=== PATIENT | female | born 1950 | race Caucasian/White ===

== ENCOUNTER 2024-04-16 18:23 | Emergency (ER) | payer MEDICARE, SELFPAY ==
--- NOTE | ~2024-04-16 | CT_ITS ---
EXAMINATION: CT abdomen pelvis w con DATE: 04/16/2024 21:09 INDICATION: Abdominal pain, vomiting, dark emesis, dark tarry stools. TECHNIQUE: Computed tomography (CT) of the abdomen and pelvis was performed with 100 CC Omnipaque 350 intravenous contrast. Automated exposure control and iterative reconstruction technique were employe d. Exam dose: 586.24 mGy-cm total exam DLP. COMPARISON: 04/16/2024 abdomen for gastric tube placement FINDINGS: Included lower lung rizzo are clear of infiltrate or consolidation. Cardiomegaly, coronary atherosclerotic calcification. No pericardial or pleural effusion. NG tube in the gastric antrum. Numerous small stones are layering in the dependent aspect of the gallbladder. No gallbladder wall th ickening or pericholecystic fluid collection. Very small probable right hepatic cysts. No bile duct or pancreatic duct dilatation. No pancreatic mass lesion or calcification. Normal splenic size. Normal morphology of the adrenal glands. Mild to moderate bilateral renal scarring likely due to chronic pyelonephritis. Upper pole right renal 3 cm cyst. Very small mid right renal cyst. No other renal space-occupying mas s lesion is evident. No urinary tract calculus or hydroureteronephrosis. There is moderately prominent diffuse thickening of the urinary bladder wall; cystitis is not exclude d. The uterus and adnexal areas are unremarkable. There is extensive atherosclerotic calcified plaque of the abdominal aorta and common iliac arteries and atherosclerotic calcification of the common femoral and superficial femoral arteries. No intraperitoneal or retroperitoneal or pelvic mass lesion or adenopathy or ascites is detected. Mild diverticulosis of the left and right colon; no CT evidence of diverticulitis. No bowel obstruction or intraperitoneal free air. No evidence of appendicitis. Diffuse idiopathic skeletal hyperostosis of the thoracic spine. Severe degenerative disc disease at L5-S1. No suspicious osteolytic or osteoblastic lesions are noted. IMPRESSION: NG tube in gastric antrum Cholelithiasis Very small hepatic cysts, 3 cm and very small right renal cysts The bladder wall thickening; recommend clinical correlation to exclude cystitis Diverticulosis of left and right colon; no CT evidence of diverticulitis Reviewed, dictated and finalized at [facility]. Reviewed, dictated and finalized at [facility].
--- NOTE | ~2024-04-16 | XR_ITS ---
XR abdomen gastric tube insert DATE: 04/16/2024 20:20 INDICATION: NG tube placement TECHNIQUE: Portable AP view on 04/16/2024 at 2018 hours COMPARISON: None available FINDINGS: NG tube tip is in the lower body of the stomach approximately the proximal side port approx imately 13 cm distal to the diaphragmatic hiatus. Nonspecific bowel gas pattern. No intraperitoneal free air is evident. Included lung rizzo appear clear. No pleural effusion is noted. Aortic arch calcification. IMPRESSION: NG tube in satisfactory position in the body of stomach Reviewed, dictated and finalized at [facility] Reviewed, dictated and finalized at [facility].
[2024-04-16 18:25] VITALS: BP 165/107; PULSE 115; RESP 24; TEMP 36.6; O2SAT 97
[2024-04-16 18:46] VITALS: BP 165/99; PULSE 115; RESP 15; O2SAT 98
[2024-04-16] MEDS: PANTOPRAZOLE SODIUM IV 40 MG VIAL IV PUSH (20:00)
[2024-04-16] MEDS: SODIUM CHLORIDE 0.9% IV 1,000 ML 999 ML IV CONT (20:00)
[2024-04-16 20:07] LABS: Basophils Absolute Auto 0.1 K/mm3 (0.0-0.1); Basophils Percent Auto 0.8 % (0.2-1.2); Eosinophils Absolute Auto 0.1 K/mm3 (0-0.3); Eosinophils Percent Auto 0.3 % (0-4.4); Hematocrit 36.9 % (37.0-47.0); Hemoglobin 12.4 g/dL (12.0-15.0); Immature Granulocyte Absolute 0.08 K/mm3 (0.00-0.031); Immature Granulocyte Percent A 0.5 % (0-0.5); Lymphocytes Absolute Auto 2.24 K/mm3 (0.9-3.2); Lymphocytes Percent Auto 14.1 % (18.3-44.2); Mean Corpuscular HGB Conc 33.6 g/dl (32-36); Mean Corpuscular Hemoglobin 29.7 pg (26-34); Mean Corpuscular Volume 88.5 fl (80-100); Mean Platelet Volume 11.2 fl (7.4-10.4); Monocytes Absolute Auto 0.8 K/mm3 (0.1-0.6); Monocytes Percent Auto 5.2 % (2.6-8.5); Neutrophils Absolute Auto 12.6 K/mm3 (1.3-6.7); Neutrophils Percent Auto 79.1 % (45.5-73.1); Platelet Count Result 415 k/mm3 (150-375); Red Blood Count 4.17 M/mm3 (4.2-5.4); Red Cell Distribution Width 13.2 % (11.5-14.5); White Blood Count 15.9 K/mm3 (4.5-10.0)
[2024-04-16 20:16] VITALS: BP 150/77; PULSE 99; RESP 24; O2SAT 98
[2024-04-16 20:19] LABS: Lactic Acid Reflex 1.1 mmol/L (0.7-2.0)
--- NOTE | 2024-04-16 20:19 | PC.NURSE ---
EDP Dr. Sousa verbalized correct placement of NG tube at bedside.
[2024-04-16 20:20] LABS: Alanine Aminotransferase 10 U/L (6-35); Albumin Level 4.2 g/dL (3.5-5.1); Alkaline Phosphatase 91 U/L (38-126); Anion Gap 14 mmol/L (4-12); Aspartate Amino Transferase 20 U/L (14-36); Bilirubin,Total 0.7 mg/dL (0.2-1.3); Blood Urea Nitrogen 27 mg/dL (7-17); Calcium 9.9 mg/dL (8.4-10.2); Carbon Dioxide 22 mmol/L (22-30); Chloride 100 mmol/L (98-107); Estimated CRCL calculation 32 ml/min; Estimated Glomerular Filt Rate 49; Glucose 183 mg/dL (65-110); Potassium 3.7 mmol/L (3.4-5.0); Sodium 136 mmol/L (137-145)
[2024-04-16 20:25] LABS: INR 1.2
[2024-04-16 20:26] LABS: Partial Thromboplastin Time 32.2 Seconds (22.3-36.8)
--- NOTE | 2024-04-16 21:59 | ED.GENADULT ---
HPI - General Adult General Chief complaint: GI Bleed Stated complaint: gi bleed Time Seen by Provider: 04/16/24 19:41 History of Present Illness HPI narrative: patient 74-year-old female who presents emergency department with chief complaint of nausea vomiting and dark colored stools. Patient reports she has had some abdominal discomfort with this as well reports that she is on Eliquis for atrial fibrillation. Patient also reports she got scratched by cat in her left upper extremity yesterday the patient denies bright red blood per rectum and reports that her vomitus was dark colored Related Data Allergies Allergy/AdvReac Type Severity Reaction Status Date / Time codeine Allergy Mild Unknown Verified 04/16/24 19:25 Review of Systems Review of Systems: A 10 system review of systems was completed on the patient and is negative except for what is stated in the HPI. Nursing and ancillary documentation was reviewed. Exam Narrative: GENERAL: Well-appearing, well-nourished, and in no acute distress. HEAD: Normocephalic, atraumatic. EYES: PERRLA and EOMI. ENT: Nares clear, no rhinorrhea or epistaxis. Mucous membranes moist. NECK: Supple. CHEST: Clear to auscultation. No respiratory distress. HEART: Regular rate and rhythm. No murmur heard. Normal peripheral pulses. ABDOMEN: Soft, nontender, nondistended, normal active bowel sounds. : Trace guaiac-positive stool EXTREMITIES: Normal range of motion. No edema. SKIN: Warm, dry, no rash. NEURO: No focal deficits. Alert and oriented x3. PSYCH: Normal mood and affect. Course Vital Signs Vital signs: Vital Signs Temperature 36.6 C 04/16/24 18:25 Pulse Rate 115 H 04/16/24 18:25 Respiratory Rate 24 H 04/16/24 18:25 Blood Pressure 165/107 H 04/16/24 18:25 Pulse Oximetry 97 04/16/24 18:25 Oxygen Delivery Room Air 04/16/24 18:25 Temperature 36.6 C 04/16/24 18:25 Pulse Rate 99 04/16/24 20:16 Respiratory Rate 24 H 04/16/24 20:16 Blood Pressure 150/77 H 04/16/24 20:16 Pulse Oximetry 98 04/16/24 20:16 Oxygen Delivery Room Air 04/16/24 18:25 Medical Decision Making MDM Narrative Medical decision making narrative: differential diagnosis includes gastroenteritis, GI bleed, electrolyte abnormalities, intra-abdominal infection laboratory studies showed white count of 15.9 hemoglobin was 12.4 INR is 1.2 electrolytes showed a BUN of 27 and creatinine 1.1 lactic acid was 1.1 NG tube showed no acute bleed stool was brown and is trace guaiac positive CT scan of the abdomen pelvis showed NG tube in gastric antrum Cholelithiasis Very small hepatic cysts, 3 cm and very small right renal cysts The bladder wall thickening; recommend clinical correlation to exclude cystitis Diverticulosis of left and right colon; no CT evidence of diverticulitis patient is feeling much better at this time and will be discharged home with antiemetic Vital Signs Vital Signs: Vital Signs Temperature 36.6 C 04/16/24 18:25 Pulse Rate 115 H 04/16/24 18:25 Respiratory Rate 24 H 04/16/24 18:25 Blood Pressure 165/107 H 04/16/24 18:25 Pulse Oximetry 97 04/16/24 18:25 Oxygen Delivery Room Air 04/16/24 18:25 Temperature 36.6 C 04/16/24 18:25 Pulse Rate 99 04/16/24 20:16 Respiratory Rate 24 H 04/16/24 20:16 Blood Pressure 150/77 H 04/16/24 20:16 Pulse Oximetry 98 04/16/24 20:16 Oxygen Delivery Room Air 04/16/24 18:25 Lab Data 04/16/24 19:57 04/16/24 19:57 Labs: Lab Results 04/16/24 04/16/24 Range/Units 19:57 19:58 WBC 15.9 H (4.5-10.0) K/mm3 RBC 4.17 L (4.2-5.4) M/mm3 Hgb 12.4 (12.0-15.0) g/dL Hct 36.9 L (37.0-47.0) % MCV 88.5 (80-100) fl MCH 29.7 (26-34) pg MCHC 33.6 (32-36) g/dl RDW 13.2 (11.5-14.5) % Plt Count 415 H (150-375) k/mm3 MPV 11.2 H (7.4-10.4) fl Immature Gran % (Auto) 0.5 (0-0.5) % Neut % (Auto) 79
[2024-04-16 22:32] VITALS: BP 158/89; PULSE 118; RESP 23; O2SAT 97
--- NOTE | 2024-04-16 22:34 | PC.NURSE ---
NG TUBE REMOVED PER NESS [facility]
[2024-04-16 23:46] VITALS: TEMP 36.7
== END 2024-04-16 23:47 | disposition home or self-care (01) ==
PROVIDERS: Emergency Medicine; Emergency Provider Emergency Medicine
DX: R11.2 Nausea with vomiting, unspecified (principal); Z79.01 Long term (current) use of anticoagulants
CPT/HCPCS: 36415; 74177; 80053; 83605; 85025; 85610; 85730; 86850; 86900; 86901; 96361; 96374; 99284; J2470; J7030; Q9967

== ENCOUNTER 2024-11-28 16:11 | Outpatient (CLI) | payer MEDICARE, SELFPAY ==
--- NOTE | ~2024-11-28 | XR_ITS ---
HISTORY: Type 2 diabetes mellitus with foot ulcer COMPARISON: None TECHNIQUE: 3 views of the right foot were performed FINDINGS: Post transmetatarsal amputation. Diffuse bony demineralization and sclerosis. Diffuse soft tissue swelling is noted. Ossification of the insertion of the Achilles tendon is present. Poor visualization of the soft tissue defect as described in patient's history. No cortical lucency is noted. IMPRESSION: As above. Reviewed, dictated and finalized at [facility]. IMPRESSION: As above.
== END 2024-11-28 16:12 | disposition home or self-care (01) ==
LOC: MICIMG 16:13
PROVIDERS: PCP Podiatrist Foot & Ankle Surgery; Visit Provider Podiatrist Foot & Ankle Surgery
DX: E11.621 Type 2 diabetes mellitus with foot ulcer (principal); M67.873 Other specified disorders of tendon, right ankle and foot; M81.8 Other osteoporosis without current pathological fracture; Z89.431 Acquired absence of right foot
CPT/HCPCS: 73630